=== PATIENT | male | born 1970 | race Caucasian/White ===

== ENCOUNTER → 2019-07-01 14:00 | Inpatient (IN) | payer OTHER ==
[2019-06-29] MEDS: fentaNYL 100 mcg/2 ml 50 MCG/ML VIAL IV PRN ×2 (15:21→15:45)
[2019-06-29] MEDS: Lactated Ringers 1000 ml BAG 1,000 ML IV SCH (16:32)
[2019-06-29] MEDS: oxyCODONE/Acetamin 5/325 mg TAB PO PRN ×2 (16:41→22:49)
[2019-06-29] MEDS: ceFAZolin 1 GM ADVAN(*) 1 GM in NS 0.9% 50 ML 50 ML IVPB SCH (20:01)
[2019-06-29] MEDS: Magnesium Hydroxide LIQ 30 ML UDC PO SCH (20:57)
[2019-06-30] MEDS: Lactated Ringers 1000 ml BAG 1,000 ML IV SCH (03:01)
[2019-06-30] MEDS: ceFAZolin 1 GM ADVAN(*) 1 GM in NS 0.9% 50 ML 50 ML IVPB SCH ×2 (03:54→12:23)
[2019-06-30 04:26] LABS: Hematocrit 37 % (42-52); Hemoglobin 12.7 g/dL (14.0-18.0); Mean Platelet Volume 7.6 fL (7.4-10.4); Platelet Count 204 10^3/uL (150-450)
[2019-06-30 04:41] LABS: BUN/Creatinine Ratio 23.8 (8-20); Calcium 8.2 mg/dL (8.6-10.3); EGFR African American 116.6 (>60); EGFR Non-African American 96.3 (>60); Potassium 4.1 mmol/L (3.5-5.0)
[2019-06-30] MEDS: oxyCODONE/Acetamin 5/325 mg TAB PO PRN ×4 (06:06→21:11)
[2019-06-30] MEDS: Vitamin THERAPEUTIC TAB PO SCH (09:11)
[2019-06-30] MEDS: Magnesium Hydroxide LIQ 30 ML UDC PO SCH ×2 (09:11→21:11)
[2019-06-30] MEDS: Morphine ER 30 mg TAB (*) ** extended release PO SCH (21:11)
[2019-07-01 05:55] LABS: Hematocrit 38 % (42-52); Hemoglobin 12.7 g/dL (14.0-18.0); Mean Platelet Volume 7.6 fL (7.4-10.4); Platelet Count 191 10^3/uL (150-450)
[2019-07-01] MEDS: oxyCODONE/Acetamin 5/325 mg TAB PO PRN ×2 (08:15→13:52)
[2019-07-01] MEDS: Vitamin THERAPEUTIC TAB PO SCH (08:50)
[2019-07-01] MEDS: Magnesium Hydroxide LIQ 30 ML UDC PO SCH (08:50)
[2019-07-01] MEDS: Morphine ER 30 mg TAB (*) ** extended release PO SCH (09:34)
[2019-07-01 13:18] VITALS: BP 113/73
[~2019-07-01 14:00] MED LIST: Acetaminophen IV 1 GM/100ML 100 ML ONE; Buffered Lidocaine 1% SYRIN 1 ml INTRADERM ONE; Bupivacaine 0.5% SDV PF 30ML VIAL ONE; HYDROmorphone 1 MG/1 ML SYRINGE IV PRN; Influenza VAC *QUAD* 2019-20* 0.5 ML SYRINGE IM ONE; Ketamine HCL 50 mg/ml 10 ml VIAL (500 MG) ONE; Lactated Ringers 1000 ml BAG 1,000 ML IV SCH; Lactulose 30 ml UDC PO PRN; Lidocaine 2% PF 5 ML VIAL ONE; Magnesium Hydroxide LIQ 30 ML UDC PO PRN; Midazolam 10 mg/10 ml VIAL 1 mg/ml 10 ml VIAL (10 mg) ONE; Morphine 2 MG/ML SYRINGE IV PRN; Morphine ER 15 mg (*) ** extended release PO SCH; Naloxone 0.4 mg VIAL 0.4 mg/ml 1 ml VIAL IV PRN; Ondansetron 4 mg VIAL 2 MG/ML 2 ml VIAL IV PRN; Ondansetron ODT 4 mg TAB 4 MG TAB PO PRN; Phenylephrine 40 mcg/mL 10mL (400mcg) SYRINGE ONE; Phenylephrine IV 10 MG/ML 1 ml VIAL ONE; Polyethylene Glycol 3350 17 GM PACKET PO PRN; Prochlorperazine 5 mg/ml 2 ml VIAL (10 mg) IV PRN; Propofol 1,000 MG/100 ML BTL ONE; Tranexamic Acid 1 GM/100 mL BAG (PREMIX) outpatient IV SCH; ceFAZolin 2 GM PREMIX in ORs 2 GM/50 ML BAG ONE; diPHENhydraMINE 25 mg TAB PO PRN; diPHENhydraMINE IV 50 MG/ML 1 ml VIAL (BENADRYL) IV PRN; fentaNYL 100 mcg/2 ml 50 MCG/ML VIAL ONE; oxyCODONE/Acetamin 5/325 mg TAB ONE
== END | disposition home or self-care (01) | DRG 301 ==
LOC: AA 06-29 08:49 → SSU 06-29 13:43
PROVIDERS: ADMIT Orthopaedic Surgery Adult Reconstructive Orthopaedic Surgery; ATTEND Orthopaedic Surgery Adult Reconstructive Orthopaedic Surgery
PROC: 0SRB04A Replacement of Left Hip Joint with Ceramic on Polyethylene Synthetic Substitute, Uncemented, Open Approach (ICD-10-PCS; principal; 2019-06-29)
DX: M16.12 Unilateral primary osteoarthritis, left hip (principal); E78.00 Pure hypercholesterolemia, unspecified; E66.9 Obesity, unspecified; R00.0 Tachycardia, unspecified; Z91.030 Bee allergy status; Z68.34 Body mass index [BMI] 34.0-34.9, adult; Z23 Encounter for immunization